=== PATIENT | male | born 1995 | race Caucasian/White ===

== ENCOUNTER 2019-01-26 19:28 | Emergency (ER) | payer BC ==
[2019-01-26] MEDS ORDERED: PROPARACAINE 0.5% OPHTH DROPS 15 ML BTL RIGHT EYE STA (20:51)
[2019-01-26] MEDS ORDERED: ERYTHROMYCIN 5 MG/GM OPHTH OINT 3.5 GM TUBE RIGHT EYE STA (21:40)
--- NOTE | 2019-01-26 21:58 | ED ---
General Adult HPI - General Chief complaint: Eye Problems Stated complaint: Metal in eye Time Seen by Provider: 01/26/19 20:51 Source: patient, RN notes reviewed, old records reviewed Mode of arrival: ambulatory Limitations: no limitations - History of Present Illness Initial comments: 23-year-old male patient presented to the chief complaint a piece of metal in right eye. Patient reports that yesterday he was cutting a piece of sustain a steel felt something go in his right eye. Patient does report that he irrigated vigorously. Reports that he felt plain the time. However this morning he woke up and had foreign body sensation. Tearing his right eye. No longer injection. Patient reports that his vision at baseline however when his eye becomes tearing it becomes blurry. Patient states the tetanus up-to-date. Patient denies any other complaints. Patient is not a contact lens user. Systemic: Pt denies fatigue, fever/chills, rash. Pt denies weakness, night sweats, weight loss. Neuro: Pt denies headache, visual disturbances, syncope or pre-syncope. HEENT: Pt denies otalgia, rhinorrhea, pharyngitis or notable lymphadenopathy. Cardiopulmonary: Pt denies chest pain, SOB, heart palpitations, dyspnea on exertion. Abdominal/GI: Pt denies abdominal pain, n/v/d. : Pt denies dysuria, burning w/ urination, frequency/urgency. Denies new onset urinary or bowel incontinence. MSK: Pt denies myalgia, loss of strength or function in extremities. Neuro: Pt denies new onset weakness, paresthesias. - Related Data Previous Rx's Medication Instructions Recorded Erythromycin Ophth Oint [Romycin 1 applic RIGHT EYE QID 5 Days #1 01/26/19 Ophth Oint] tube Allergies Allergy/AdvReac Type Severity Reaction Status Date / Time No Known Allergies Allergy Verified 01/26/19 20:43 Review of Systems ROS Statement: Those systems with pertinent positive or pertinent negative responses have been documented in the HPI. ROS Other: All systems not noted in ROS Statement are negative. Past Medical History Past Medical History: No Reported History History of Any Multi-Drug Resistant Organisms: None Reported Past Surgical History: No Surgical Hx Reported Past Psychological History: No Psychological Hx Reported Smoking Status: Never smoker Past Alcohol Use History: None Reported Past Drug Use History: None Reported General Exam - General Exam Comments Initial Comments: Constitutional: NAD, AOX3, Pt has pleasant affect. HEENT: NC/AT, trachea midline, neck supple, no lymphadenopathy. Posterior pharynx non erythematous, without exudates. External ears appear normal, without discharge. Mucous membranes moist. Eyes PERRLA, EOM intact. There is no scleral icterus. No pallor noted. Intraocular pressure average of 16 bilaterally. Mild amount of injection noted to the lateral canthus of right eye. Flexion stain did not display any foreign body or any corneal abrasion. Cardiopulmonary: RRR, no murmurs, rubs or gallops, no JVD noted. Lungs CTAB in anterior and posterior salas. No peripheral edema. Abdominal exam: Abdomen soft and non-distended. Abdomen non-tender to palpation in all 4 quadrants. Bowel sounds active in LLQ. No hepatosplenomegaly. No ecchymosis Neuro: CN II-XII grossly intact. No nuchal rigidity. No raccon eyes, no arriaga sign, no hemotympanum. No cervical spinal tenderness. MSK: No posterior calf tenderness bilaterally, homans sign negative bilaterally. Posterior tibialis and radial pulse +2 bilaterally. Sensation intact in upper and lower extremities. Full active ROM in upper and lower extremities, 5/5 stregnth. Limitations: no limitations Course Vital Signs 01/26/19 20:42 Temperature 97.9 F Pulse Rate 87 Respiratory 18 Rate Blood Pressure 119/61 O2 Sat by Pulse 99 Oximetry Medical Decision Making - Medical Decision Making 23-year-old male patient presented to the chief complaint a piece of metal in right eye. Patient reports that yesterday he was cutting a piece of sustain a steel felt something go in his right eye. Patient does report that he irrigated vigorously. Reports that he felt plain the time. However this morning he woke up and had foreign body sensation. Tearing his right eye. No longer injection. Patient reports that his vision at baseline however when his eye becomes tearing it becomes blurry. Patient states the tetanus up-to-date. Patient denies any other complaints. Patient is not a contact lens user. Pt VSS, afebrile. Physical exam displayed: Intraocular pressure average of 16 bilaterally. Mild amount of injection noted to the lateral canthus of right eye. Flexion stain did not display any foreign body or any corneal abrasion. A physical exam did not display any corneal abrasion or foreign body. Patient history is concerning, will treat for corneal abrasion have close outpatient follow-up with electrical lineman tomorrow. Case discussed with Dr. Galicia. Disposition Clinical Impression: Corneal abrasion, right Disposition: HOME SELF-CARE Condition: Stable Instructions (If sedation given, give patient instructions): Eye Foreign Body (ED) Additional Instructions: Patient to adhere to previously discussed treatment plan and will take medication(s) as directed. Patient to follow up with PCP in 1-2 days. Patient to return to ED if symptoms do not improve. Use antibiotic as directed. Follow up with primary care provider tomorrow. Return to ER if condition worsens. Prescriptions: Erythromycin Ophth Oint [Romycin Ophth Oint] 1 applic RIGHT EYE QID 5 Days #1 tube Is patient prescribed a controlled substance at d/c from ED?: No Referrals: None,Stated [Primary Care Provider] - 1-2 days Rubens Patel MD [STAFF PHYSICIAN] - 1-2 days
[2019-01-26 23:11] VITALS: BP 110/56; PULSE 88; RESP 20; TEMP 98.1
== END 2019-01-26 22:10 | disposition home or self-care (01) ==
LOC: EC 19:28
DX: S05.01XA Injury of conjunctiva and corneal abrasion without foreign body, right eye, initial encounter (principal); X58.XXXA Exposure to other specified factors, initial encounter; Y93.89 Activity, other specified
CPT/HCPCS: 99283